=== PATIENT | female | born 1970 | race Caucasian/White ===

== ENCOUNTER 2024-02-08 08:49 | Emergency (ER) | payer OTHER ==
[2024-02-08] MEDS ORDERED: Cyclobenzaprine 10 MG TAB ONE (09:30)
== END 2024-02-08 10:35 | disposition home or self-care (01) ==
LOC: NAV ERS 08:49
DX: S80.01XA Contusion of right knee, initial encounter (principal); S30.0XXA Contusion of lower back and pelvis, initial encounter; N18.9 Chronic kidney disease, unspecified; W19.XXXA Unspecified fall, initial encounter
CPT/HCPCS: 72100